=== PATIENT | female | born 1965 | race Caucasian/White ===

== ENCOUNTER → 2025-04-09 08:20 | Outpatient (REF) | payer OTHER, SELFPAY | LOC: RAD 08:20 | PROVIDERS: ATTENDING PHYSICIAN Otolaryngology | DX: H93.8X2 Other specified disorders of left ear (principal) | CPT/HCPCS: 70480 ==

== ENCOUNTER 2025-06-06 06:29 | Day surgery (SDC) | payer OTHER, SELFPAY ==
[2025-06-06] VITALS (13 sets, daily range): BP systolic 98–128; BP diastolic 54–82; BMI 29.6
== END 2025-06-06 13:50 | disposition home or self-care (01) ==
LOC: SDS 06:29
PROVIDERS: ATTENDING PHYSICIAN Otolaryngology
DX: H71.92 Unspecified cholesteatoma, left ear (principal)
CPT/HCPCS: 69633; 88304; 88311